=== PATIENT | female | born 1970 | race Caucasian/White ===

== ENCOUNTER 2018-12-10 21:15 | Emergency (ER) | payer MEDICARE, MEDICAID ==
--- OUTSIDE RECORDS SUMMARY | 2018-12-10 21:41 | XMS REPORT | Continuity of Care Document ---
:1970 External Reference #:[id number] Author Name Dawna Dale N.P. (transmitted by agent of provider Lavonne Velasquez) Address [address], [address] [place] [address] Care Team Providers Name Role Phone Dawna Dale NP - Family Care Team Information Jewel Diameter Gauger [phone] Problems Active Problems Provider Date Essential hypertension Sanam Solomon M.D. Onset: 12/26/2012 Generalized anxiety disorder Gertrudis Ricks NRayray Onset: 06/20/2013 Premature beats Sanam Solomon M.D. Onset: 12/26/2012 Hyperaldosteronism Gertrudis Ricks NRayray Onset: 06/20/2013 Hearing loss Gertrudis Ricks N.P. Onset: 06/20/2013 Malignant neoplasm of female breast Gertrudis Ricks NRayray Onset: 10/03/2013 Chronic intractable migraine without aura La Jackson M.D. Onset: 2015 Social History Type Date Description Comments Sex Unknown ETOH Use Denies alcohol use Tobacco Use Start: Unknown Patient has never smoked Recreational Drug Use Denies Drug Use Smoking Status Reviewed: 12/09/18 Patient has never smoked Exercise Type/Frequency Exercises rarely Allergies, Adverse Reactions, Alerts Active Allergies Reaction Severity Comments Date Penicillins 06/20/2013 Augmentin 06/20/2013 Latex 06/20/2013 Wheat 05/26/2018 Dairy 05/26/2018 Inactive Allergies NKDA 12/26/2012 Medications Active Medications SIG Qnty Indications Ordering Date Provider Ativan One po bid prn 10tabs F41.1 Dawna Dale, 06/17/2018 0.5mg Tablets anxiety N.P. Diovan take 1 tablet 270tabs I10 Dawna Dale, 07/25/2013 40mg Tablets by mouth q am N.P. take 2 tablets by mouth q pm Excedrin Migraine as needed Unknown [phone] Tablets Spironolactone Take 1/2 Tablet 30tabs Dawna Suyapa, 25mg Tablets By Mouth Every N.P. Day Immunizations Description No Information Available Vital Signs Date Vital Result Comment 12/09/2018 1:34pm Height 63.5 inches 5'3.50" Weight 123.25 lb Heart Rate 82 /min BP Systolic 142 mmHg BP Diastolic 95 mmHg Body Temperature 97.7 F O2 % BldC Oximetry 98 % BMI (Body Mass Index) 21.5 kg/m2 09/20/2018 9:57am Height 63.5 inches 5'3.50" Weight 121.12 lb Heart Rate 78 /min BP Systolic 119 mmHg BP Diastolic 82 mmHg Body Temperature 96.9 F O2 % BldC Oximetry 98 % BMI (Body Mass Index) 21.1 kg/m2 Results Test Date Facility Test Result H/L Range Note CBC Auto 11/26/2018 [facility] White Blood 7.3 10^3/uL Normal 3.5-10.[address] [place] [address] [phone] Red Blood Count 4.33 10^6/uL Normal 3.70-4.87 Hemoglobin 13.9 g/dL Normal 12.0-16.0 Hematocrit 41 % Normal 35-47 Mean Corpuscular Volume 94 fL Normal 80-97 Mean Corpuscular Hemoglobin 32 pg High 27-31 Mean Corpuscular HGB Conc 34 g/dL Normal 31-36 Red Cell Distribution Width 14 % Normal 10-15 Platelet Count 266 10^3/uL Normal 150-450 Mean Platelet Volume 8.3 fL Normal 7.4-10.4 Abs Neutrophils 5.3 10^3/uL Normal 1.5-7.7 Abs Lymphocytes 1.3 10^3/uL Normal 1.0-4.8 Abs Monocytes 0.5 10^3/uL Normal 0-0.8 Abs Eosinophils 0.1 10^3/uL Normal 0-0.6 Abs Basophils 0.1 10^3/uL Normal 0-0.2 Abs Nucleated RBC 0.0 10^3/uL Granulocyte % 72.9 % Lymphocyte % 17.6 % Monocyte % 7.2 % Eosinophil % 1.4 % Basophil % 0.9 % Nucleated Red Blood Cells % 0.0 Laboratory test 11/26/2018 [facility] Ferritin 37.1 ng/mL Normal 11-[address] [place] [address] [phone] Vitamin D Total 25(Oh) 23.4 ng/mL Normal 20-50 1 CBC Auto 09/20/2018 [facility] White Blood 6.5 10^3/uL Normal 3.5-10.[address] [place] [address] [phone] Red Blood Count 4.47 10^6/uL Normal 3.70-4.87 Hemoglobin 13.9 g/dL Normal 12.0-16.0 Hematocrit 42 % Normal 35-47 Mean Corpuscular Volume 93 fL Normal 80-97 Mean Corpuscular Hemoglobin 31 pg Normal 27-31 Mean Corpuscular HGB Conc 33 g/dL Normal 31-36 Red Cell Distribution Width 13 % Normal 10-15 Platelet Count 257 10^3/uL Normal 150-450 Mean Platelet Volume 9.1 fL Normal 7.4-10.4 Abs Neutrophils 4.7 10^3/uL Normal 1.5-7.7 Abs Lymphocytes 0.9 10^3/uL Low 1.0-4.8 Abs Monocytes 0.6 10^3/uL Normal 0-0.8 Abs Eosinophils 0.1 10^3/uL Normal 0-0.6 Abs Basophils 0.1 10^3/uL Normal 0-0.2 Abs Nucleated RBC 0.0 10^3/uL Granulocyte % 72.8 % Lymphocyte % 14.7 % Monocyte % 9.2 % Eosinophil % 2.0 % Basophil % 1.3 % Nucleated Red Blood Cells % 0.1 Basic Metabolic 09/20/2018 [facility] Sodium 138 mmol/L Normal 135-[address] [place] [address] [phone] Potassium 4.4 mmol/L Normal 3.5-5.0 Chloride 107 mmol/L Normal 101-111 Co2 Carbon Dioxide 23 mmol/L Normal 22-32 Anion Gap 8 mmol/L Normal 2-11 Glucose 81 mg/dL Normal 70-100 Blood Urea Nitrogen 12 mg/dL Normal 6-24 Creatinine 0.68 mg/dL Normal 0.51-0.95 BUN/Creatinine Ratio 17.6 Normal 8-20 Calcium 9.5 mg/dL Normal 8.6-10.3 Egfr Non- 92.7 >60 Egfr 112.2 >60 2 Laboratory test 09/20/2018 [facility] Partial 36.3 Normal 26.0 -38.[address] [address] Time PTT [phone] Inr/Protime 09/20/2018 [facility] Inr 0.97 Normal 0.82-1.09 3 [address] [place], [place] [id number] [phone] Urinalysis 09/20/2018 [facility] Urine Color Straw Profile [address] [place] [address] [phone] Urine Appearance Clear Urine Specific Linden 1.004 Low 1.010-1.030 Urine pH 6.0 Normal 5-9 Urine Urobilinogen Negative Negative Urine Ketones Negative Negative Urine Protein Negative Negative Urine Leukocytes Negative Negative Urine Blood 3+ Abnormal Negative Urine Nitrite Negative Negative Urine Bilirubin Negative Negative Urine Glucose Negative Negative Urine White Blood Cell Absent Absent Urine Red Blood Cell Trace(0-2/hpf) Absent Urine Bacteria Absent Absent Urine Squamous Epithelial Cell Present Abnormal Absent Laboratory test 09/20/2018 [facility] Ferritin 9.1 ng/mL Low 11-307 finding [address] [place] [address] [phone] Vitamin D Total 25(Oh) 28.6 ng/mL Normal 20-50 4 Laboratory test 07/01/2018 [facility] Ferritin 18.4 ng/mL Normal 11-307 finding [address] [place], [place] [address] [phone] Partial Thrombo Time PTT 30.6 seconds Normal 26.0-36.3 Urinalysis Profile 07/01/2018 [facility] Urine Color Straw [address] [place] [address] [phone] Urine Appearance Clear Urine Specific Linden 1.005 Low 1.010-1.030 Urine pH 7.0 Normal 5-9 Urine Urobilinogen Negative Negative Urine Ketones Negative Negative Urine Protein Negative Negative Urine Leukocytes Negative Negative Urine Blood Negative Negative Urine Nitrite Negative Negative Urine Bilirubin Negative Negative Urine Glucose Negative Negative Inr/Protime 07/01/2018 [facility] Inr 0.93 Normal 0.77-1.[address] [place] [address] [phone] CBC Auto Diff 06/17/2018 [facility] White Blood 7.0 Normal 3.5 -10.[address] Count 10^3/[place] [address] [phone] Red Blood Count 4.46 10^6/uL Normal 3.70-4.87 Hemoglobin 14.3 g/dL Normal 12.0-16.0 Hematocrit 42 % High 33-41 Mean Corpuscular Volume 95 fL Normal 80-97 Mean Corpuscular Hemoglobin 32 pg High 27-31 Mean Corpuscular HGB Conc 34 g/dL Normal 31-36 Red Cell Distribution Width 12 % Normal 10.5-15 Platelet Count 225 10^3/uL Normal 150-450 Mean Platelet Volume 8.8 fL Normal 7.4-10.4 Abs Neutrophils 5.3 10^3/uL Normal 1.5-7.7 Abs Lymphocytes 1.1 10^3/uL Normal 1.0-4.8 Abs Monocytes 0.5 10^3/uL Normal 0-0.8 Abs Eosinophils 0.1 10^3/uL Normal 0-0.6 Abs Basophils 0.1 10^3/uL Normal 0-0.2 Abs Nucleated RBC 0 10^3/uL Granulocyte % 75.1 % Lymphocyte % 15.6 % Monocyte % 7.7 % Eosinophil % 0.8 % Basophil % 0.8 % Nucleated Red Blood Cells % 0 Comp Metabolic 06/17/2018 [facility] Sodium 136 mmol/L Normal 135-145 Panel [address] [place] [address] [phone] Potassium 4.3 mmol/L Normal 3.5-5.0 Chloride 107 mmol/L Normal 101-111 Co2 Carbon Dioxide 19 mmol/L Low 22-32 Anion Gap 10 mmol/L Normal 2-11 Calcium 9.4 mg/dL Normal 8.6-10.3 Albumin 4.3 g/dL Normal 3.2-5.2 Total Bilirubin 0.80 mg/dL Normal 0.2-1.0 Glucose 81 mg/dL Normal 70-100 Blood Urea Nitrogen 11 mg/dL Normal 6-24 Creatinine 0.63 mg/dL Normal 0.51-0.95 BUN/Creatinine Ratio 17.5 Normal 8-20 Total Protein 6.8 g/dL Normal 6.4-8.9 Globulin 2.5 g/dL Normal 2-4 Albumin/Globulin Ratio 1.7 Normal 1-3 Alkaline Phosphatase 47 U/L Normal 34-104 Alt 14 U/L Normal 7-52 Ast 18 U/L Normal 13-39 Egfr Non- 101.3 >60 Egfr 122.6 >60 5 Urinalysis Profile 06/17/2018 [facility] Urine Color Straw [address] [place] [address] [phone] Urine Appearance Clear Urine Specific Linden 1.004 Low 1.010-1.030 Urine pH 6.0 Normal 5-9 Urine Urobilinogen Negative Negative Urine Ketones Negative Negative Urine Protein Negative Negative Urine Leukocytes Negative Negative Urine Blood 3+ Abnormal Negative Urine Nitrite Negative Negative Urine Bilirubin Negative Negative Urine Glucose Negative Negative Urine White Blood Cell Trace(0-5/hpf) Absent Urine Red Blood Cell 2+(6-10/hpf) Abnormal Absent Urine Bacteria Absent Absent Urine Squamous Epithelial Cell Present Abnormal Absent Urine Culture And 06/17/2018 [facility] Urine Culture SEE RESULT [address] [place] [address] [phone] 1 Total 25-Hydroxyvitamin D2 and D3 (25-OH-VitD) <10 ng/mL (severe deficiency) 10-19 ng/mL (mild to moderate deficiency) 20-50 ng/mL (optimum levels) 51-80 ng/mL (increased risk of hypercalciuria) >80 ng/mL (toxicity possible) 2 Because ethnic data is not always readily available, this report includes an eGFR for both -Americans and non- Americans. The National Kidney Disease Education Program (NKDEP) does not endorse the use of the MDRD equation for patients that are not between the ages of 18 and 70, are , have extremes of body size, muscle mass, or nutritional status, or are non- or non-. According to the National Kidney Foundation, irrespective of diagnosis, the stage of the disease is based on the level of kidney function: Stage Description GFR(mL/min/1.73 m(2)) 1 Kidney damage with normal or decreased GFR 90 2 Kidney damage with mild decrease in GFR 60-89 3 Moderate decrease in GFR 30-59 4 Severe decrease in GFR 15-29 5 Kidney failure <15 (or dialysis) 3 Standard intensity warfarin therapeutic range: 2.0-3.0 High intensity warfarin therapeutic range: 2.5-3.5 4 Total 25-Hydroxyvitamin D2 and D3 (25-OH-VitD) <10 ng/mL (severe deficiency) 10-19 ng/mL (mild to moderate deficiency) 20-50 ng/mL (optimum levels) 51-80 ng/mL (increased risk of hypercalciuria) >80 ng/mL (toxicity possible) 5 Because ethnic data is not always readily available, this report includes an eGFR for both -Americans and non- Americans. The National Kidney Disease Education Program (NKDEP) does not endorse the use of the MDRD equation for patients that are not between the ages of 18 and 70, are , have extremes of body size, muscle mass, or nutritional status, or are non- or non-. According to the National Kidney Foundation, irrespective of diagnosis, the stage of the disease is based on the level of kidney function: Stage Description GFR(mL/min/1.73 m(2)) 1 Kidney damage with normal or decreased GFR 90 2 Kidney damage with mild decrease in GFR 60-89 3 Moderate decrease in GFR 30-59 4 Severe decrease in GFR 15-29 5 Kidney failure <15 (or dialysis) 6 SEE RESULT BELOW Name: JAIMIE GARCÍA : [address]: Dawna Dale NP Acct: [id number] Unit: [id number] AGE: 48 Location: [facility] Re06/17/18 SEX: F Status: REG REF SPEC: [id number] CHANTAL: 06/17/18-[address]: Dawna Dale NP REQ: [id number] RECD: 06/17/18 STATUS: COMP _ SOURCE: URINE SPDESC: ORDERED: Urine Culture Procedure Result Reported Site Urine Culture Final 06/18/18- 1601 ML No Growth (<1,000 CFU/mL) * ML - Main Lab . END OF REPORT DEPARTMENT OF PATHOLOGY, [address] [place] [address] Jose Duran M.D. Director [facility] # [id number] Procedures Date Code Description Status 06/14/2018 65105 Stress Test Completed 03/29/2013 [id number] Mammogram Completed Medical Devices Description No Information Available Encounters Type Date Location Provider Dx Diagnosis Office Visit 09/20/2018 [facility] Dawna Varn, Z01.818 Encounter for other 10:00a Medicine - [facility] N.P. preprocedural examination I10 Essential (primary) hypertension Z85.3 Personal history of malignant neoplasm of breast Office Visit 07/01/2018 3:20p [facility] Dawna Varn, Z01.818 Encounter for other Medicine - N.P. preprocedural [facility] examination Z85.3 Personal history of malignant neoplasm of breast I10 Essential (primary) hypertension F41.1 Generalized anxiety disorder Office Visit 06/17/2018 [facility] Dawna I10 Essential 10:20a [facility] Varn, N.P. (primary) hypertension Z01.818 Encounter for other preprocedural examination F41.1 Generalized anxiety disorder J30.9 Allergic rhinitis, unspecified Assessments Date Code Description Provider 12/09/2018 G43.019 Migraine without aura, intractable, without Dawna Varn , N.P. status migrainosus 09/20/2018 Z01.818 Encounter for other preprocedural examination Dawna Varn, N.P. 09/20/2018 I10 Essential (primary) hypertension Dawna Varn, N.P. 09/20/2018 Z85.3 Personal history of malignant neoplasm of Dawna Varn, N.P. breast 07/01/2018 Z01.818 Encounter for other preprocedural examination Dawna Varn, N.P. 07/01/2018 Z85.3 Personal history of malignant neoplasm of Dawna Varn, N.P. breast 07/01/2018 I10 Essential (primary) hypertension Dawna Varn, N.P. 07/01/2018 F41.1 Generalized anxiety disorder Dawna Varn, N.P. 06/17/2018 I10 Essential (primary) hypertension Dawna Varn, N.P. 06/17/2018 Z01.818 Encounter for other preprocedural examination Dawna Varn, N.P. 06/17/2018 F41.1 Generalized anxiety disorder Dawna Varn, N.P. 06/17/2018 J30.9 Allergic rhinitis, unspecified Dawna Varn, N.PAlonso 06/14/2018 R07.9 Chest pain, unspecified Sanam Solomon M.D. Plan of Treatment Future Appointment(s):12/27/2018 11:20 am - Dawn[facility] Dale N.P. [facility] Dawna Dale N.P.G43.019 Migraine without aura, intractable, without status migrainosusComments:You are having a rebound headache. I want you to stop taking all pain medications. You can take yourAtivan 0.5 mg. If this does not give you relief after an hour you may take another. You may take up to 1 mg, every 8 hours.If this does not help and your pain does not improve, you may need to go to the ER. Functional Status Description No Information Available Mental Status Description No Information Available Referrals Description No Information Available
[2018-12-11] MEDS ORDERED: NS 0.9% 1000 ML** 1,000 ML IV ONE (00:03)
[2018-12-11] MEDS ORDERED: PROCHLORPERAZINE INJ 5 MG/ML 2 ML VIAL IV ONE (00:11)
[2018-12-11] MEDS ORDERED: diPHENhydraMINE IV* 50 MG/ML 1 ml VIAL (BENADRYL) SLOW PUSH ONE (00:11)
[2018-12-11] MEDS ORDERED: Ketorolac INJ* 30 MG/ML 1 ML VIAL IV PUSH ONE (00:11)
--- NOTE | 2018-12-11 00:52 | ED ---
Headache - HPI Summary HPI Summary: 48-year-old male presents with headache for the past day. Has history of migraines. States that on many different about this migraine is length that has been going on. Is not more intense than her previous negative. Not worst headache of life. She been taking Tylenol ibuprofen for the pain. She started ativan a day ago and took without any relief. She has seen her primary for this. Headache is in the same location as previous. She denies any fevers. No neck stiffness. Pain does radiate to her neck. She admits to photophobia. No change in vision. States she's little nauseous but no vomiting. Has a history of breast cancer that is in remission for. - History Of Current Complaint Chief Complaint: EDHeadache Stated Complaint: MIGRAINE SINCE WEDNESDAY PER PT Time Seen by Provider: 12/10/18 23:56 Hx Last Menstrual Period: 05/26/15 - Allergies/Home Medications Allergies/Adverse Reactions: Allergies Allergy/AdvReac Type Severity Reaction Status Date / Time MS Penicillins [Penicillins] Allergy Hives Verified 12/10/18 21:33 PMH/Surg Hx/FS Hx/Imm Hx Endocrine/Hematology History: Denies: Hx Anticoagulant Therapy, Hx Diabetes, Hx Thyroid Disease Cardiovascular History: Reports: Hx Hypertension Denies: Hx Congestive Heart Failure, Hx Deep Vein Thrombosis, Hx Myocardial Infarction, Hx Pacemaker/ICD Respiratory History: Denies: Hx Asthma, Hx Chronic Obstructive Pulmonary Disease (COPD), Hx Lung Cancer, Hx Pneumonia, Hx Pulmonary Embolism GI History: Denies: Hx Gall Bladder Disease, Hx Gastrointestinal Bleed, Hx Ulcer, Hx Urosepsis History: Denies: Hx Kidney Stones, Hx Renal Disease Neurological History: Denies: Hx Dementia, Hx Migraine, Hx Seizures, Hx Transient Ischemic Attacks (TIA) Psychiatric History: Reports: Hx Anxiety, Hx Depression Denies: Hx Schizophrenia, Hx Bipolar Disorder - Cancer History Cancer Type, Location and Year: NEIL BREAST CANCER - Surgical History Surgery Procedure, Year, and Place: BREAST CANCER - LYMPH NODE SURGERY Infectious Disease History: No Infectious Disease History: Denies: History Other Infectious Disease, Traveled Outside the [place] in Last 30 Days - Family History Known Family History: Positive: None - Social History Alcohol Use: None Substance Use Type: Reports: None Smoking Status (MU): Never Smoked Tobacco Review of Systems Negative: Fever Negative: Chest Pain Negative: Shortness Of Breath Positive: Nausea. Negative: Vomiting Positive: Headache All Other Systems Reviewed And Are Negative: Yes Physical Exam Triage Information Reviewed: Yes Vital Signs On Initial Exam: Initial Vitals Temp Pulse Resp BP Pulse Ox 99.1 F 112 20 166/106 98 12/10/18 21:31 12/10/18 21:31 12/10/18 21:31 12/10/18 21:31 12/10/18 21:31 Vital Signs Reviewed: Yes Appearance: Positive: Well-Appearing Skin: Positive: Warm, Dry Head/Face: Positive: Normal Head/Face Inspection Eyes: Positive: Normal, EOMI, YANA, Conjunctiva Clear ENT: Positive: Normal ENT inspection, Pharynx normal, TMs normal Respiratory/Lung Sounds: Positive: Clear to Auscultation, Breath Sounds Present Cardiovascular: Positive: Normal, RRR Abdomen Description: Positive: Nontender, Soft Bowel Sounds: Positive: Present Musculoskeletal: Positive: Normal Neurological: Positive: Sensory/Motor Intact, Alert, Oriented to Person Place, Time, CN Intact II-III Psychiatric: Positive: Normal Diagnostics - Vital Signs Vital Signs Temp Pulse Resp BP Pulse Ox 12/11/18 00:28 78 155/103 97 12/11/18 00:07 87 100 12/10/18 21:31 99.1 F 112 20 166/106 98 - Laboratory Result Diagrams: 12/11/18 00:56 12/11/18 00:56 Lab Statement: Any lab studies that have been ordered have been reviewed, and results considered in the medical decision making process. Re-Evaluation - Re-Evaluation First Eval Re-Evaluation Time: 01:25 Change: Improved Comment: feeling better, still a little headache Second Eval Re-Evaluation Time: 02:32 Change: Improved Comment: headache resolved Headache Course/Dx - Course Course Of Treatment: 48-year-old male presents with headache for the past day. Has history of migraines. States that on many different about this migraine is length that has been going on. Is not more intense than her previous negative. Not worst headache of life. She been taking Tylenol ibuprofen for the pain. She started ativan a day ago and took without any relief. She has seen her primary for this. Headache is in the same location as previous. She denies any fevers. No neck stiffness. Pain does radiate to her neck. She admits to photophobia. No change in vision. States she's little nauseous but no vomiting. Has a history of breast cancer that is in remission for. On exam has a normal neuro exam. Is very photophobic. gave migraine cocktail and feeling better. Was discharged to follow-up with primary. Patient understands and agrees the plan. - Diagnoses Differential Diagnosis/HQI/PQRI: Migraine, Tension Headache, Viral Syndrome Provider Diagnoses: Headache Discharge ED - Sign-Out/Discharge Documenting (check all that apply): Patient Departure Patient Received Moderate/Deep Sedation with Procedure: No - Discharge Plan Condition: Good Disposition: HOME Patient Education Materials: Acute Headache (ED) Referrals: Dawna Dale NP [Primary Care Provider] - Additional Instructions: take tyenlol or ibuprofen as needed for pain every 6 hours follow up with primary Return to ED if develop any new or worsening symptoms - Billing Disposition and Condition Condition: GOOD Disposition: Home
[2018-12-11 01:02] LABS: ABS Basophils 0.1 10^3/ul (0-0.2); ABS Eosinophils 0.1 10^3/ul (0-0.6); ABS Lymphocytes 1.3 10^3/ul (1.0-4.8); ABS Monocytes 0.5 10^3/ul (0-0.8); ABS Neutrophils 6.7 10^3/ul (1.5-7.7); Eosinophil % 0.6 %; Hematocrit 41 % (35-47); Hemoglobin 13.8 g/dL (12.0-16.0); Mean Corpuscular HGB Conc 34 g/dL (31-36); Mean Corpuscular Hemoglobin 32 pg (27-31); Mean Corpuscular Volume 94 fL (80-97); Platelet Count 244 10^3/uL (150-450); Red Blood Count 4.33 10^6 /uL (3.70-4.87); Red Cell Distribution Width 13 % (10-15); White Blood Count 8.7 10^3/uL (3.5-10.8)
[2018-12-11 01:21] LABS: Albumin 3.9 g/dL (3.2-5.2); Albumin/Globulin Ratio 1.4 (1-3); BUN/Creatinine Ratio 13.6 (8-20); Calcium 8.6 mg/dL (8.6-10.3); EGFR African American 132.2 (>60); EGFR Non-African American 109.3 (>60); Globulin 2.7 g/dL (2-4); Potassium 3.7 mmol/L (3.5-5.0); Total Bilirubin 0.4 mg/dL (0.2-1.0); Total Protein 6.6 g/dL (6.4-8.9)
[2018-12-11] MEDS ORDERED: Dexamethasone IV* 4 MG/ML 1 ML (4 MG) IV SLOW PU ONE (01:23)
[2018-12-11 02:37] VITALS: BP 172/107
== END 2018-12-11 02:25 | disposition home or self-care (01) ==
LOC: ED 21:15
DX: R51 Headache (principal); H53.149 Visual discomfort, unspecified; R11.0 Nausea; I10 Essential (primary) hypertension; Z85.3 Personal history of malignant neoplasm of breast; Z88.0 Allergy status to penicillin
CPT/HCPCS: 36415; 80053; 83735; 85025; 96361; 96374; 96375; 99283; J0780; J1100; J1200; J1885

== ENCOUNTER 2018-12-16 14:11 | Emergency (ER) | payer MEDICARE, MEDICAID ==
--- NOTE | 2018-12-16 14:33 | ED ---
Headache - HPI Summary HPI Summary: 48 year [facility] F [facility] where she had CT done showing carotid artery dissection complains of persistent headache rated 5/10 in severity for 2 weeks. Has PMHx migraine headaches. Patient states that on , she developed a migraine headache located in her eyeballs, eyebrows, temples , which eventually radiated into left side of her jaw, left ear, left side of her neck with associated nausea, dry heaving, and vomiting. Patient states she took medications with no relief. Patient states she hasn't been sleeping well. At night, patient is unable to fall asleep due to the pain in her neck. She states that her heart starts "flopping around in her throat," she gets buzzing in her ears and pounding of blood, all of which wakes her up at night. Patient was seen in the ED on 12/11/18 for these symptoms, and discharged home. Patient states she was seen by the chiropractor last week who did some neck manipulation on patient. Symptoms aggravated by nothing. Symptoms alleviated by nothing. - History Of Current Complaint Chief Complaint: EDHeadache Stated Complaint: CAROTID ARTERY DISSECTION PER PT Time Seen by Provider: 12/16/18 14:18 Hx Obtained From: Patient Onset/Duration: Started weeks ago - 12/04/18, Still Present Currently Pain Is: Moderate - 5/10 Timing: Constant Radiates to: left side of her jaw, left ear, left side of her neck Aggravating Factor: Nothing Allevating Factors: Nothing Associated Signs And Symptoms: Other (Noted In Comments) - nausea, dry heaving, and vomiting - Allergies/Home Medications Allergies/Adverse Reactions: Allergies Allergy/AdvReac Type Severity Reaction Status Date / Time amoxicillin Allergy Swelling Verified 12/16/18 14:30 Latex, Natural Rubber Allergy Rash And Verified 12/16/18 14:30 Itching MS Penicillins [Penicillins] Allergy Hives Verified 12/16/18 14:17 PMH/Surg Hx/FS Hx/Imm Hx Endocrine/Hematology History: Denies: Hx Diabetes, Hx Thyroid Disease Cardiovascular History: Reports: Hx Hypertension Denies: Hx Congestive Heart Failure, Hx Deep Vein Thrombosis, Hx Myocardial Infarction, Hx Pacemaker/ICD Respiratory History: Denies: Hx Asthma, Hx Chronic Obstructive Pulmonary Disease (COPD), Hx Lung Cancer, Hx Pneumonia, Hx Pulmonary Embolism GI History: Denies: Hx Gall Bladder Disease, Hx Gastrointestinal Bleed, Hx Ulcer, Hx Urosepsis History: Denies: Hx Kidney Stones, Hx Renal Disease Neurological History: Denies: Hx Dementia, Hx Migraine, Hx Seizures, Hx Transient Ischemic Attacks (TIA) Psychiatric History: Reports: Hx Anxiety, Hx Depression Denies: Hx Schizophrenia, Hx Bipolar Disorder - Cancer History Cancer Type, 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 BILAT MASTECTOMY. BILAT IMPLANTS Infectious Disease History: No Infectious Disease History: Denies: History Other Infectious Disease, Traveled Outside the [place] in Last 30 Days - Family History Known Family History: Positive: Other - breast cancer - Social History Alcohol Use: None Hx Substance Use: No Substance Use Type: Reports: None Hx Tobacco Use: No Smoking Status (MU): Never Smoked Tobacco Review of Systems Positive: Vomiting, Nausea, Other - dry heaving Positive: Headache All Other Systems Reviewed And Are Negative: Yes Physical Exam - Summary Physical Exam Summary: Constitutional: Well-developed, Well-nourished, Alert. (-) Distressed. Patient is anxious Skin: Warm, Dry HENT: Normocephalic; Atraumatic Eyes: Conjunctiva normal Neck: Musculoskeletal ROM normal neck. (-) JVD, (-) Stridor, (-) Nuchal rigidity. No bruit. Cardio: Rhythm regular, rate normal, Heart sounds normal; Intact distal pulses; Radial pulses are 2+ and symmetric. (-) Murmur Pulmonary/Chest wall: Effort normal. (-) Respiratory distress, (-) Wheezes, (-) Rales Abd: Soft, (-) tenderness, (-) Distension, (-) Guarding, (-) Rebound Musculoskeletal: (-) Edema Lymph: (-) Cervical adenopathy Neuro: Alert, Oriented x3 Psych: Mood and affect Normal Triage Information Reviewed: Yes Vital Signs On Initial Exam: Initial Vitals Temp Pulse Resp BP Pulse Ox 98.5 F 86 18 200/123 97 12/16/18 14:13 12/16/18 14:13 12/16/18 14:13 12/16/18 14:13 12/16/18 14:13 Vital Signs Reviewed: Yes Diagnostics - Vital Signs Vital Signs Temp Pulse Resp BP Pulse Ox 12/16/18 14:13 98.5 F 86 18 200/123 97 - Laboratory Result Diagrams: 12/16/18 15:41 12/16/18 15:41 Lab Statement: Any lab studies that have been ordered have been reviewed, and results considered in the medical decision making process. Re-Evaluation - Re-Evaluation First Eval Re-Evaluation Time: 15:16 Comment: patient updated on transfer plan to [facility]. patient is agreeable to transfer plan Headache Course/Dx - Course Course Of Treatment: 48 y/o F with headache found to have L carotid dissection. - will d/w NSGY here, given labetalol for HTN. - Diagnoses Provider Diagnoses: Carotid artery dissection, Hypertension - Physician Notifications Discussed Care Of Patient With: Chris Gar Time Discussed With Above Provider: 14:33 Instructed by Provider To: Other - Dr. Gar, neurosurgery, recommends transferring patient. Spoke with Dr. Good, vascular surgery at [facility], at 15:05 who recommends aspirin and Plavix and blood pressure control, and admission to hospitalist services at [facility]. Dr. Hurtado, hospitalist at [facility], agrees to admit patient to [facility] at 15:25. Discharge ED - Sign-Out/Discharge Documenting (check all that apply): Patient Departure - Transfer to [facility] Patient Received Moderate/Deep Sedation with Procedure: No - Discharge Plan Condition: Stable Disposition: PSYCHIATRIC FACILITY-OTHER Referrals: Dawna Dale NP [Primary Care Provider] - - Billing Disposition and Condition Condition: STABLE Disposition: Psychiatric Facility Other - Attestation Statements Document Initiated by Scribe: Yes Documenting Scribe: Janice Mora Provider For Whom Godwin is Documenting (Include Credential): Ike Galvan MD Scribe Attestation: I, Janice Mora, scribed for Ike Galvan MD on 12/16/18 at 1621. Scribe Documentation Reviewed: Yes Provider Attestation: The documentation as recorded by the scribe, Janice Mora accurately reflects the service I personally performed and the decisions made by me, Ike Galvan MD Status of Scribe Document: Viewed
[2018-12-16] MEDS ORDERED: Labetalol IV* 5 MG/ML 20 ML VIAL IV PUSH ONE (14:36)
[2018-12-16] MEDS ORDERED: Clopidogrel TAB* 75 MG PO ONE ×2 (15:16→16:20)
[2018-12-16] MEDS ORDERED: Aspirin 81 mg CHEW TAB* 81 MG TAB.CHEW PO ONE (15:16)
[2018-12-16 15:47] LABS: ABS Basophils 0.1 10^3/ul (0-0.2); ABS Eosinophils 0.1 10^3/ul (0-0.6); ABS Lymphocytes 1.4 10^3/ul (1.0-4.8); ABS Monocytes 0.6 10^3/ul (0-0.8); ABS Neutrophils 8.3 10^3/ul (1.5-7.7); Eosinophil % 0.5 %; Hematocrit 40 % (35-47); Hemoglobin 13.8 g/dL (12.0-16.0); Lymphocyte % 13.4 %; Mean Corpuscular HGB Conc 34 g/dL (31-36); Mean Corpuscular Hemoglobin 32 pg (27-31); Mean Corpuscular Volume 94 fL (80-97); Platelet Count 277 10^3/uL (150-450); Red Blood Count 4.31 10^6 /uL (3.70-4.87); Red Cell Distribution Width 13 % (10-15); White Blood Count 10.5 10^3/uL (3.5-10.8)
[2018-12-16 16:00] LABS: INR 1.03 (0.82-1.09)
[2018-12-16 16:03] LABS: Albumin/Globulin Ratio 1.6 (1-3); BUN/Creatinine Ratio 19.2 (8-20); EGFR African American 152.9 (>60); EGFR Non-African American 126.4 (>60); Globulin 2.5 g/dL (2-4); Potassium 3.6 mmol/L (3.5-5.0); Total Bilirubin 0.4 mg/dL (0.2-1.0); Total Protein 6.5 g/dL (6.4-8.9)
[2018-12-16 17:29] VITALS: BP 168/104
== END 2018-12-16 17:00 ==
LOC: ED 14:11
DX: I77.71 Dissection of carotid artery (principal); I10 Essential (primary) hypertension; F41.9 Anxiety disorder, unspecified; F32.9 Major depressive disorder, single episode, unspecified; Z88.0 Allergy status to penicillin; Z85.3 Personal history of malignant neoplasm of breast; Z88.1 Allergy status to other antibiotic agents; Z91.040 Latex allergy status; Z90.13 Acquired absence of bilateral breasts and nipples; Z79.899 Other long term (current) drug therapy; I72.0 Aneurysm of carotid artery; I65.22 Occlusion and stenosis of left carotid artery; R51 Headache
CPT/HCPCS: 36415; 70496; 70498; 80053; 85025; 85610; 96374; 99284; A9270-GY; Q9967